=== PATIENT | female | born 1945 | race Caucasian/White ===

== ENCOUNTER → 2017-09-22 15:20 | Outpatient (CLI) | payer MEDICARE, SELFPAY ==
--- NOTE | 2017-09-22 | DI.MG.S_ITS ---
BILATERAL DIGITAL SCREENING MAMMOGRAM 3D/2D WITH CAD: 09/22/2017 CLINICAL: Routine screening. Comparison is made to exams dated: 09/01/2016 mammogram, 10/30/2015 mammogram, and 10/03/2014 mammogram - [facility]. The tissue of both breasts is heterogeneously dense. This may lower the sensitivity of mammography. Current study was also evaluated with a Computer Aided Detection (CAD) system. There is a large cluster of lymph nodes in the left breast posterior depth superior region seen on the mediolateral oblique view only. These are more conspicuous than on prior studies. No other significant masses, calcifications, or other findings are seen in either breast. IMPRESSION: INCOMPLETE: NEEDS ADDITIONAL IMAGING EVALUATION The cluster of lymph nodes in the left breast is indeterminate. An ultrasound is recommended. This exam was interpreted at Station ID: [id number]. NOTE: For mammograms, a report in lay terms will be sent to the patient. Approximately 15% of breast malignancies will not be visualized mammographically. In the management of a palpable breast mass, a negative mammogram must not discourage biopsy of a clinically suspicious lesion. Electronically Signed By: Snow Pulliam M.D. lk/:09/22/2017 17:19:50 letter sent: Additional Imaging Needed ACR BI-RADS Category 0: Incomplete 3340F
== END ==
PROVIDERS: Visit Provider Nurse Practitioner Family
DX: Z12.31 Encounter for screening mammogram for malignant neoplasm of breast (principal); R92.8 Other abnormal and inconclusive findings on diagnostic imaging of breast
CPT/HCPCS: 77063; 77067

== ENCOUNTER → 2017-10-04 09:48 | Outpatient (CLI) | payer MEDICARE, SELFPAY ==
--- NOTE | 2017-10-04 | DI.US.S_ITS ---
ULTRASOUND OF LEFT BREAST AND LEFT AXILLA: 10/04/2017 CLINICAL: Abnormal left mammogram. Comparison is made to exams dated: 09/22/2017 mammogram, 09/01/2016 mammogram, and 10/30/2015 mammogram - [facility]. Real-time ultrasound of the left breast and axilla was performed in the superior left breast. No abnormal enlarged left axillary lymph nodes identified. IMPRESSION: NEGATIVE There is no sonographic evidence of malignancy. There are no suspicious abnormalities seen in the left breast to correspond with the mildly enlarged axillary lymph nodes in the upper aspect. A 1 year screening mammogram is recommended. This exam was interpreted at Station ID: [id number]. Electronically Signed By: Blake bain/:10/04/2017 10:36:05 letter sent: Normal Exam Ultrasound BI-RADS: 1 Negative
== END ==
PROVIDERS: PCP Nurse Practitioner Family; Visit Provider Nurse Practitioner Family
DX: R92.8 Other abnormal and inconclusive findings on diagnostic imaging of breast (principal)
CPT/HCPCS: 76642

== ENCOUNTER → 2018-11-23 14:47 | Outpatient (CLI) | payer MEDICARE, SELFPAY ==
--- NOTE | 2018-11-23 14:56 | DI.MG.S_ITS ---
Diagnostic Imaging [address] [place] [id number] PHONE: [phone] Patient Name: HALIMA RON date: 1945 Sex: F Attending Physician: Sean Indications: Date: 11/23/2018 14:56 At the request of: NICK BUSH Procedure: MM screening mammo BI BILATERAL DIGITAL SCREENING MAMMOGRAM 3D/2D WITH CAD: 11/23/2018 CLINICAL: Routine screening. Comparison is made to exams dated: 09/22/2017 mammogram, 09/01/2016 mammogram, 10/30/2015 mammogram, 10/03/2014 mammogram, and 10/02/2013 mammogram - [facility]. The tissue of both breasts is heterogeneously dense. This may lower the sensitivity of mammography. Current study was also evaluated with a Computer Aided Detection (CAD) system. No significant masses, calcifications, or other findings are seen in either breast. There has been no significant interval change. IMPRESSION: NEGATIVE There is no mammographic evidence of malignancy. A 1 year screening mammogram is recommended. This exam was interpreted at Station ID: [id number]. NOTE: For mammograms, a report in lay terms will be sent to the patient. Approximately 15% of breast malignancies will not be visualized mammographically. In the management of a palpable breast mass, a negative mammogram must not discourage biopsy of a clinically suspicious lesion. Electronically Signed By: Delvin parham/dina:11/23/2018 19:00:08 letter sent: Normal Exam ACR BI-RADS Category 1: Negative 3341F
== END ==
PROVIDERS: PCP Nurse Practitioner Family; Visit Provider Nurse Practitioner Family
DX: Z12.31 Encounter for screening mammogram for malignant neoplasm of breast (principal)
CPT/HCPCS: 77063; 77067

== ENCOUNTER → 2020-03-13 09:31 | Outpatient (CLI) | payer MEDICARE, SELFPAY ==
--- NOTE | 2020-03-13 | DI.MG.S_ITS ---
BILATERAL DIGITAL DIAGNOSTIC MAMMOGRAM 3D/2D: 03/13/2020 CLINICAL: Left breast lump. Comparison is made to exams dated: 11/23/2018 mammogram, 09/22/2017 mammogram, and 09/01/2016 mammogram - [facility]. There are scattered fibroglandular elements in both breasts. There is a stable benign vascular calcification in both breasts. There is a stable benign 1.1 cm oval equal density asymmetry with a circumscribed margin in the left breast central to the nipple anterior depth. NO currency exchange specialist multliple prior exams. No other significant masses, calcifications, or other findings are seen in either breast. Specifically, no finding to explain the patient's pain. IMPRESSION: INCOMPLETE: NEEDS ADDITIONAL IMAGING EVALUATION There is no abnormality seen in the left breast to correspond with the pain at 1 o'clock in the posterior depth, however, ultrasound is recommended. This was performed immediately following this exam. Mammograms are otherwise stable. This exam was interpreted at Station ID: [id number]. NOTE: For mammograms, a report in lay terms will be sent to the patient. Approximately 15% of breast malignancies will not be visualized mammographically. In the management of a palpable breast mass, a negative mammogram must not discourage biopsy of a clinically suspicious lesion. Electronically Signed By: Rita galan/:03/13/2020 10:29:49 ACR BI-RADS Category 0: Incomplete 3340F
--- NOTE | 2020-03-13 | DI.US.S_ITS ---
LIMITED ULTRASOUND OF LEFT BREAST AND AXILLA: 03/13/2020 CLINICAL: Palpable left breast lump. Comparison is made to exams dated: 03/13/2020 mammogram, 11/23/2018 mammogram, 10/04/2017 ultrasound, 09/22/2017 mammogram, 09/01/2016 mammogram, and 10/30/2015 mammogram - [facility]. Real-time ultrasound of the left breast 1 o'clock, and axilla regions was performed. Blake scale images of the real-time examination were reviewed. No significant abnormalities were seen sonographically in the left breast or the left axilla. Specifically, no finding to correspond to the patient's palpable abnormality. IMPRESSION: NEGATIVE There is no sonographic correlate to the patient's palpable abnormality and no evidence of malignancy. Return to annual mammogram screening schedule is recommended. Findings and recommendations were conveyed to the patient at time of exam. This exam was interpreted at Station ID: [id number]. Electronically Signed By: Rita galan/:03/13/2020 11:16:12 letter sent: Normal Exam Ultrasound BI-RADS: 1 Negative
== END ==
PROVIDERS: PCP Nurse Practitioner Family; Referring Provider Nurse Practitioner Family; Visit Provider Nurse Practitioner Family
DX: R92.2 Inconclusive mammogram (principal); N63.21 Unspecified lump in the left breast, upper outer quadrant; M81.0 Age-related osteoporosis without current pathological fracture; Z78.0 Asymptomatic menopausal state; Z82.62 Family history of osteoporosis
CPT/HCPCS: 76642; 77066; 77080; G0279

== ENCOUNTER → 2020-07-29 15:34 | Outpatient (CLI) | payer MEDICARE, SELFPAY ==
--- NOTE | 2020-07-29 15:36 | DI.RAD.S_ITS ---
PROCEDURE: XR HIP W PEL IF DONE RODRIGUEZ MIN 4V INDICATIONS: HIP PAIN TECHNIQUE: AP pelvis with lateral view(s) of the bilateral hip(s). COMPARISON: None. FINDINGS: Bones: No fractures or dislocations. Pelvic ring appears intact. No suspicious bony lesions. There is severe right hip space narrowing with subchondral sclerosis and periarticular osteophytes. Moderate narrowing is noted on the left. Degenerative changes are present within the lower lumbar spine. Soft tissues: The visualized bowel gas pattern is normal. No suspicious soft tissue calcifications. IMPRESSION: Severe right hip arthritic change, progressive compared to prior exam. Dictated by: Mitzi Child M.D. on 07/29/2020 at 16:59 Approved by: Mitzi Child M.D. on 07/29/2020 at 17:01
== END ==
PROVIDERS: PCP Nurse Practitioner Family; Referring Provider Physical Medicine & Rehabilitation; Visit Provider Physical Medicine & Rehabilitation
DX: M25.551 Pain in right hip (principal); M25.552 Pain in left hip
CPT/HCPCS: 73522

== ENCOUNTER → 2022-02-26 12:17 | Outpatient (CLI) | payer MEDICARE, SELFPAY ==
--- NOTE | 2022-02-26 | DI.MG.S_ITS ---
BILATERAL DIGITAL SCREENING MAMMOGRAM 3D/2D WITH CAD: 02/26/2022 CLINICAL: Routine screening. Comparison is made to exams dated: 03/13/2020 mammogram, 11/23/2018 mammogram, and 09/22/2017 mammogram - [facility]. There are scattered areas of fibroglandular density in both breasts (category b / 25%-50% glandular tissue). Current study was also evaluated with a Computer Aided Detection (CAD) system. There are stable benign vascular calcifications in both breasts. No significant masses, calcifications, or other findings are seen in either breast. There has been no significant interval change. IMPRESSION: BENIGN There is no mammographic evidence of malignancy. A 1 year screening mammogram is recommended. Based on the Tyrer Cuzick model (a risk assessment model) the patient's lifetime risk is 3.6% and her 10 year risk is 0.0%. According to the ACR, ACS, and NCCN guidelines, an annual breast MRI exam along with mammogram is recommended if the patient's lifetime risk is 20% or greater. This exam was interpreted at Station ID: [id number]. NOTE: For mammograms, a report in lay terms will be sent to the patient. Approximately 15% of breast malignancies will not be visualized mammographically. In the management of a palpable breast mass, a negative mammogram must not discourage biopsy of a clinically suspicious lesion. Electronically Signed By: Dirk olson/dina:02/26/2022 16:33:22 letter sent: Normal Exam ACR BI-RADS Category 2: Benign Finding(s) 3342F
== END ==
PROVIDERS: PCP Family Medicine; Referring Provider Family Medicine; Visit Provider Family Medicine
DX: M81.8 Other osteoporosis without current pathological fracture (principal); Z12.31 Encounter for screening mammogram for malignant neoplasm of breast; Z79.83 Long term (current) use of bisphosphonates
CPT/HCPCS: 77063; 77067; 77080

== ENCOUNTER 2022-03-19 06:34 | Day surgery (SDC) | payer MEDICARE, SELFPAY ==
[2022-03-11 09:53] VITALS: BMI 18.3
[2022-03-19] VITALS (17 sets, daily range): BP systolic 82–172; BP diastolic 46–83; PULSE 57–83; RESP 12–20; TEMP 35.8–37; O2SAT 92–100; BMI 18.3
--- NOTE | 2022-03-19 06:00 | DI.RAD.S_ITS ---
PROCEDURE: XR HIP W PEL IF DONE RT 2V INDICATIONS: TRACEY TECHNIQUE: 4 intraoperative fluoroscopic images of the right hip acquired. COMPARISON: [facility], CR, XR HIP W PEL IF DONE RT 2V, 03/19/2022, 10:52. FINDINGS: Intraoperative fluoroscopic images shows right total hip arthroplasty in progress. Right hip alignment is anatomic. IMPRESSION: Fluoro guidance was provided intraoperatively for right total hip arthroplasty. Dictated by: Joon Burgess M.D. on 03/19/2022 at 16:39 Approved by: Joon Burgess M.D. on 03/19/2022 at 16:40
[2022-03-19] MEDS: VANCOMYCIN 1,000 MG/200 ML PIGGYBACK 200 MG IV (07:25)
[2022-03-19] MEDS: ACETAMINOPHEN 325 MG TABLET 975 MG PO (07:25)
[2022-03-19] MEDS: CELECOXIB 200 MG CAPSULE PO (07:26)
[2022-03-19] MEDS: LACTATED RINGERS 1,000 ML 84 ML IV (07:28)
--- NOTE | 2022-03-19 07:40 | PM.PREOP ---
Pre-operative Note COVID-19 COVID-19 status: Negative Interval Note History & Physical reviewed/Exam performed by Physician: Yes Changes to H&P: No
--- NOTE | 2022-03-19 07:41 | PM.PREOP ---
Pre-operative Note COVID-19 COVID-19 status: Negative Interval Note History & Physical reviewed/Exam performed by Physician: Yes Changes to H&P: No
--- NOTE | 2022-03-19 07:47 | P.OP_ITS ---
Operative Date/Time/Diagnoses Date of procedure: 03/19/22 Time of procedure: 08:00 Pre-op diagnosis: right hip OA Post-op diagnosis: same Procedure & Clinicians Procedure: right total hip arthroplasty anterior approach Same procedure as scheduled: Yes Indications: The patient has had progressively worsening right hip pain with radiographic c hanges consistent with arthritis. Non-operative management has failed and the patient has requested total hip replacement. The risks, benefits and alternatives to surgery were discussed with the patient prior to proceeding. Risks discussed included, but were not limited to, failure to relieve pain, leg length discrepancy, dislocation, stiffness, infection, nerve damage, deep venous thrombosis, pulmonary embolism, stroke, coma, heart attack, permanent paralysis and , as well as the potential need for eventual revision of the prosthetic. Surgeon: Valentina Del Valle Principal Cyber Engineer: Kesha Nino Anesthesia Type: General and Spinal Operative Notes Findings: Severe right hip osteoarthritis, soft femur, adequate stability Closure Type: primary Specimen(s): none sent Prosthetic devices, grafts, tissues, transplants, or devices: Del Valle and nephew anthology size 6 standard offset, 50 mm R3 cup, neutral poly liner, 32 x -3 Oxinium femoral head,one 6.5 mm screw Estimated Blood Loss (mL): 200 Blood products transfused: none Procedure in detail: The patient was brought to the operating room. Patient was carefully positioned in the supine position. Time-out was performed and antibiotics were given. Anesthesia was induced. She was positioned in the on the table in order to allow hyperextension of the hip. The right lower extremity was prepped and draped in a standard sterile fashion. An anterior right hip incision was made 1 fingerbreadth lateral to the anterior superior iliac spine and extended distally towards the greater trochanter. Dissection was carried out through skin and subcutaneous tissues. Superficial hemostasis was achieved. The fascia over the tensor fascia augie was defined and incised with a knife. Two Allis clamps were used to grasp the fascia. Tensor fascia augie was retracted laterally. A gelpi retractor was placed. Dissection was carried out down along the neck. The circumflex vessels were carefully identified and cauterized with the Aqua Mantis. There was good visualization of the femoral neck. A Cobra was placed superior to the neck and the gluteus fibers were carefully stripped from that superior aspect of the capsule. A 2nd retractor was placed along the inferior aspect of the neck. The rectus insertion along the capsule was partially released. A 3rd retractor that was then gently placed over the rim of the acetabulum under the rectus. Capsule was carefully incised and released from the intertrochanteric line circumferentially superior to the mid sagittal line and inferiorly to the mid sagittal line until the lesser trochanter was palpable. A tag stitch was placed both in the superior and inferior limb of the capsular insertion. Along the acetabulum capsule was also released up to the mid sagittal 12:00 position. A portion of the labrum was resected. A saw was used to perform an osteotomy at the level of the intertrochanteric line and the junction of the superior femoral neck leaving approximately 1 finger breath of residual inferior neck above the lesser trochanter. A 2nd cut was made along the femoral neck at the base of the head and a napkin ring of neck was removed. Corkscrew was placed in the femoral head and the head was removed without difficulty. Retractors were then repositioned around the acetabulum. Residual labrum was resected and additional osteophytes were removed. A reamer that was 4 mm below the templated size was placed by hand in the acetabulum and it was reamed to centralize the acetabulum. It was then reamed up to 2 under the templated size and fluoroscopy was brought in to confirm the position of the reaming and depth of reaming. I reamed 1 under the anticipated size. A trial cup was placed and noted that it was appropriately sized and fluoroscopy confirmed position and depth. The component was open and inserted without difficulty fluoroscopic imaging was used to confirm that the cup had been adequately seated and was well positioned. It was further stabilized with a single screw. Neutral poly liner was placed. The cup was tested and noted to be stable. Attention was then directed to the femur. The femur was gently hyperextended additional capsular release was performed as needed in order to allow adequate visualization of the proximal femur with elevation of the femur. Patient was placed in a hyperextended slightly adducted position with maximum external rotation. Box osteotome was used to check for any residual neck as well as scler otic bone along the trochanter. [place] pepper was placed in the femur. Additional broaching was performed. Canal finder was used to determine the alignment of the canal and position. Size 1 broach was placed. The canal was then appropriately broached up to the templated size as long as there was adequate stability of the broach and serial advancement of the broach without excessive impingement. Sp ecific attention was directed at avoiding varus attempting to direct the distal aspect of the broach more anteriorly and avoiding excessive anteversion. Trial reduction showed acceptable range of motion, good stability, no posterior impingement, muslim of leg length and appropriate lateral shuck. I also hyperflexed the hip and checked that there was no impingement anteriorly and there was good stability with flexion, adduction and internal rotation. Marcaine and Exparel were injected. The stem was placed without difficulty. Repeat trial reduction and x-ray showed acceptable overall position, length, and no evidence of the femoral fracture. Final head was placed. Wound was meticulously irrigated with normal saline. The hip was reduced and additional Exparel and Marcaine were injected. The capsule was closed with interrupted nonabsorbable sutures. The fascia of the tensor was closed with interrupted and running Vicryl. No drain was placed. Any tensor fascia augie muscle that appeared to be contused or injured which was a minimal amount was carefully resected. Capsule around the tensor was injected with Exparel and Marcaine. The skin was closed with barbed stitches for the s ubcutaneous tissue and skin. We also used surgical glue. The wound was dressed sterilely. Brief Betadine soak was also used and was meticulously irrigated with normal saline. Patient was transferred to recovery room in satisfactory condition. Complications: none Post-operative Condition: stable Disposition: Acute Care Plan for aftercare: The patient will be maintained on a standard total hip replacement protocol with weight bearing as tolerated and anterior hip precautions. The patient will receive Aspirin and sequential compression devices for DVT prophylaxis. The patient will be discharged home when safe for the home environment.
[2022-03-19] MEDS: CEFAZOLIN 2 GM/100 ML PREMIX 100 ML IV ×3 (08:30→23:22)
[2022-03-19] MEDS: TRANEXAMIC ACID 1,000 MG VIAL 2000 MG INJ ×2 (08:40→10:24)
[2022-03-19] MEDS: BUPIVACAINE LIPOSOME 266 MG/20 ML VIAL INJ (09:12)
[2022-03-19] MEDS: BUPIVACAINE 0.5% W/ EPI (PF) 30 ML VIAL INJ (09:13)
--- NOTE | 2022-03-19 09:16 | SUR.OPER ---
Supine on padded [place] table with bilateral legs secured in padded positioning boots and suspended in positioning spars, operative leg in traction per surgeon. Head on one pillow. Arm on non-operative side secured on padded armboard <90 degrees abduction. Arm on operative side padded and resting across chest then secured with tape over sheet. Padded perineal post in place per surgeon.
--- NOTE | 2022-03-19 11:00 | DI.RAD.S_ITS ---
PROCEDURE: XR HIP W PEL IF DONE RT 2V INDICATIONS: RIGHT ANTERIOR HIP TECHNIQUE: AP pelvis and lateral view of the right hip acquired. COMPARISON: [facility], CR, XR HIP W PEL IF DONE RT 2V, 03/19/2022, 11:02. [facility], CR, XR HIP W PEL IF DONE RODRIGUEZ 3TO4V, 07/29/2020, 15:36. [facility], CR, XR PELVIS WITH LATERAL HIP RIGHT, 09/18/2021, 13:42. FINDINGS: Bones: Patient is status post right hip arthroplasty, with hardware components in expected positions. The hip joint appears congruent. The visualized bony structures appear intact. Soft tissues: Overlying postoperative changes are noted. No suspicious soft tissue densities. IMPRESSION: Normal postoperative examination. Dictated by: Joseph Weinberg M.D. on 03/19/2022 at 10:28 Approved by: Joseph Weinberg M.D. on 03/19/2022 at 10:28
[2022-03-19] MEDS: LACTATED RINGERS 1,000 ML 100 ML IV (11:55)
--- NOTE | 2022-03-19 12:15 | SUR.PHASEI ---
transferred pt to floor and pt talking and moving all extremities. Pt denies any pain . No complaints voiced. No distress noted. Pt's in room when pt arrived.
[2022-03-19] MEDS: LACTATED RINGERS 1,000 ML 125 ML IV ×2 (13:00→21:27)
--- NOTE | 2022-03-19 15:15 | PT.IIE ---
Current Diagnoses Unilateral primary osteoarthritis, right hip (03/19/22) Surgery Performed Operation Date: 03/19/22 07:45 Actual Procedures p Total Hip Arthroplasty/Anterior Approach(Right) - Valentina Del Valle MD Surgical History (Last Updated 01/12/22 @ 09:12 by Jenn Lucero, RN) History of bilateral tubal ligation History of ear surgery History of tonsillectomy Hx of bilateral cataract extraction (2018) Status post cholecystectomy Medical History (Last Updated 03/11/22 @ 09:56 by Jenn Lucero RN) COVID-19 virus infection (02/09/22) HTN (hypertension) Osteoarthritis Physical Therapy Inpatient Evaluation/Re-Eval M1 PT/OT-IP Prior Functional Status Start: 03/19/22 16:31 Freq: NEEDED Status: Active Protocol: Document 03/19/22 15:15 AB (Rec: 03/19/22 16:49 AB [id number]) Medical Review Prior Functional Status Medical History Reviewed Yes Communication able to make needs known Mobility and Gait pt staed that she is independent with all mobilities and ambulation without AD Social History Household Members spouse Living Arrangements House Number of Floors (Floors) 3 or More Floors Number of Stairs To Enter/Railing? pt will stay on first level of the house: has one step to enter the house but stated that she has gravel slope and will have EMT carry her into the house and that [place] EMT already agreed to to this for her Home Environment Standard Height Toilet,Tub/ Shower Home Equipment Front Wheel Walker,Raised Toilet Seat w/Armrests,Tub Transfer Bench,Hand Held Shower,Hospital Bed,Bed Rails M2 PT-IP Current Condition Start: 03/19/22 16:31 Freq: NEEDED Status: Active Protocol: Document 03/19/22 15:15 AB (Rec: 03/19/22 16:49 AB [email or web address]) Physical Therapy Current Condition Current Condition Evaluation Date 03/19/22 Treatment Diagnosis s/p R TRACEY anterior approach; difficulty in walking Onset Date 03/19/22 M3 PT-IP Subjective Start: 03/19/22 16:31 Freq: NEEDED Status: Active Protocol: Document 03/19/22 15:15 AB (Rec: 03/19/22 16:49 AB [id number]) Subjective Physical Therapy Visit Type Type Initial Evaluation Visit Start Time 15:15 Visit Stop Time 16:27 Total Visit Minutes 72 Number of ACQUISITIONS ASSISTANT Visits 0 Therapy Pain Assessment Pain When Pain Assessed At Rest Pain Present Pain Present Pain Reported Location Right hip Intensity 2 Scale Used Numeric (0 - 10) Pain Management Techniques Apply Cold,Distraction, Modification of Treatment,Re- positioning,Timing of Activity with Medications M4 PT-IP Mobility and Gait Start: 03/19/22 16:31 Freq: NEEDED Status: Active Protocol: Document 03/19/22 15:15 AB (Rec: 03/19/22 16:49 AB [id number]) PT-Bed Mobility Assessment Supine to Sit Supine to Sit Standby Assistance Sit to Supine Sit to Supine Standby Assistance PT-Transfer Assessment Sit to and From Stand Sit to and from Stand Contact Guard Assistance,1 Person Assistance,Use of Upper Extremities Equipment Transfer Assistive Device Gait Belt,Front Wheeled Walker Orthotic/Prosthetic Devices or Brace: No Comments Mobility Comments pt c/o nausea but agreed to do PT. per nurse, pt given anti nausea med already. spouse arrived. educated pt and spouse regarding hip precautions. post-op folder provided. pt keeps stating and questioning anterior hip precautions despite education provided. stated that somebody told her not to bend her knees and reiterated to the pt regarding her hip precautions and how different surgeries have different precautions. completed supine to sit SBA. pt completed sit to stand CGA and ambulated 10 ft using FWW CGA. c/o nausea (+) emesis. chair positioned behind pt and instructed to sit but pt refused. pt insisted that she is going to walk backwards. completed bacward ambulation using FWW CGA and cues for anterior hip precaution. completed side stepping towards HOB CGA using FWW. completed sit to supine SBA. positioned pt in bed. call light and table placed within reach. pt continues to have questions regarding hip precautions and again re-educated. pt plans to have HHPT. spouse stated that he will be in the hospital 8 am to ~ 1045 am tomorrow. Gait Assessment Gait Gait Assistance Required: Contact Guard Assist Distance (Feet) 20 Able to Maintain Weight Bearing Status Yes During Gait Assistive Devices Assistive Device Gait Belt,Front Wheeled Walker Orthotic/Prosthetic Devices or Brace: No Gait Deviations General Gait Pattern Decreased Feet Clearance Factors Limiting Gait Function Factors Limiting Gait Function Decreased Activity Tolerance, Decreased Strength,Difficulty Following Directions,Limited Range of Motion,Pain,Poor Balance,Poor Safety Awareness PT-Balance Assessment Sitting Balance and Reactions Static Sitting Balance Ability Normal Dynamic Sitting Balance Ability Good Standing Balance and Reactions Static Standing Balance Ability Fair Dynamic Standing Balance Ability Fair Device Used FWW M5 PT-IP Objective Assessments Start: 03/19/22 16:31 Freq: NEEDED Status: Active Protocol: Document 03/19/22 15:15 AB (Rec: 03/19/22 16:49 AB [id number]) Orientation Orientation/Cognition Level of Alertness Alert Orientation Name,Place Language Function Ability No Deficits Noted Safety Awareness Decreased Safety Awareness Memory Description Short Term Impaired Gross Range of Motion Lower Extremity ROM Assessment Within Functional Limits Strength Lower Extremity Strength Hip 4-/5 Knee 4-/5 Sensation Assessment Sensation Gross Sensation WNL Muscle Tone Muscle Tone WNL Yes M6 PT-IP Treatment Start: 03/19/22 16:31 Freq: NEEDED Status: Active Protocol: Document 03/19/22 15:15 AB (Rec: 03/19/22 16:49 AB [id number]) Physical Therapy Treatment Education Education Provided Precautions,Weight Bearing Status,Post-Op Packet,Safety M7 PT-IP Assessment and Plan Start: 03/19/22 16:31 Freq: NEEDED Status: Active Protocol: Document 03/19/22 15:15 AB (Rec: 03/19/22 16:49 AB [id number]) PT Summary Assessment and Plan Potential Rehabilitation Potential Fair Status of Condition at Evaluation Evolving Summary Impairments Pain,ROM,Strength,Balance, Coordination,Sensation,Tone, Cognition,Bed Mobility, Transfers,Gait,Activity Tolerance Assessment Summary pt requiring CGA with ambulation using fWW but cues for anterior hip precautions. Pt's spouse will be available 800 to 1045 am tomorrow for caregiver training. will continuet o assess progress. Goals Bed Mobility Goal Independent Transfer Goal Independent,Front Wheeled Walker Gait Goal Independent,Front Wheel Walker Gait Distance 200 Days to Meet Goals 3 Frequency of Treatment Frequency Of Treatment Twice a Day Treatment Plan Physical Therapy Treatment Plan Bed Mobility Training,Transfer Training,Gait Training, Therapeutic Exercise,Balance Retraining,Post Op Education, Discharge Planning,Hot or Cold Pack,Neuromuscular Re-ed, Coordination Retraining,Manual Therapy Precautions Anterior Hip Precautions No Hip Extension,No Hip External Rotation Weight Bearing Status Weight Bearing Status Weight Bear as Tolerated Allowed Weight Bearing Amount (enter % RLE WBAT or #) (%) Recommendations To Nursing Amount of Assist Needed 1 Person Assist Discharge Recommendations PT Discharge Recommendations Home with Assistance,Home Health Transportation Needs at Discharge Private Vehicle,Wheelchair/ Cabulance
[2022-03-19] MEDS: ONDANSETRON 4 MG/2 ML INJ IV ×2 (15:35→18:45)
--- NOTE | 2022-03-19 15:46 | PC.NURSE ---
Pt arrives from PACU this afternoon at approximately 1210. VSS, afebrile on RA. She is slightly lethargic but able to awaken and answer questions. She denies wanting any jello, broth or crackers and naps on and off. RN prepares to bladder scan at 1445 as her last void was about 6 a.m. She c/o nausea and is given zofran, BP evaluated and stable at 135/66 HR 66. She is offered a bed ashraf but wanted to get up out of bed. Reviewed hip precautions and sat at the edge of the bed, she denied dizziness and was able to use FWW to BR for a large void. She is assisted back to bed and when lying down reports pain is well controlled at 2/10. alevyn dressing C/D/I with slight surrounding bruising. She denies numbness to BLE's, no edema noted, +CMS. LR running at 125 ml/hr, cefazolin administere,call light in reach. PT at bedside this afternoon.Frequent monitoring.
[2022-03-19] MEDS: KETOROLAC 30 MG/ML VIAL 15 MG IV (21:02)
[2022-03-19] MEDS: LOSARTAN 25 MG TABLET PO (21:03)
[2022-03-19] MEDS: DOCUSATE 100 MG CAPSULE PO (21:03)
[2022-03-19] MEDS: ASPIRIN EC 81 MG TABLET PO (21:03)
[2022-03-19] MEDS: hydrOXYzine pamoate 25 MG CAPSULE PO (21:57)
[2022-03-19] MEDS: ACETAMINOPHEN 325 MG TABLET 650 MG PO (23:21)
[2022-03-19] MEDS: IBUPROFEN 400 MG TABLET PO (23:21)
--- NOTE | 2022-03-20 04:20 | PC.NURSE ---
Pt is AxOx4, needs 1-2 person assistance to the bathroom with FWW. VSS, pt has been so anxious and sad all evening or when she is awake due to her family member passing recently. Pt was given Vistaril for anxiety and also the [facility] was called because she said she needed to talk to someone. Pt has been worried about every little things and cries. Pt slept ok and IV went bad around 2 a.m so IV fluid stopped and removed IV. Pt has been drinking well and voided twice already. No other changes. Continue monitor.
[2022-03-20] MEDS: ACETAMINOPHEN 325 MG TABLET 650 MG PO ×2 (05:17→12:48)
[2022-03-20] MEDS: IBUPROFEN 400 MG TABLET PO ×2 (05:17→12:50)
[2022-03-20 05:20] LABS: Hematocrit 25.2 % (36-46); Hemoglobin 8.7 g/dL (12.0-16.0)
[2022-03-20 05:51] VITALS: BP 108/56; PULSE 82; RESP 19; TEMP 36.2; O2SAT 99
--- NOTE | 2022-03-20 06:49 | P.DS_ITS ---
History of Present Illness History of Present Illness Date Patient Seen: 03/20/22 Time Patient Seen: 06:49 Chief complaint: OPB Narrative: Operative Date/Time/Diagnoses Date of procedure: 03/19/22 Time of procedure: 08:00 Pre-op diagnosis: right hip OA Post-op diagnosis: same Procedure & Clinicians Procedure: right total hip arthroplasty anterior approach Same procedure as scheduled: Yes Indications: The patient has had progressively worsening right hip pain with radiographic changes consistent with arthritis. Non-operative management has failed and the patient has requested total hip replacement. The risks, benefits and alternatives to surgery were discussed with the patient prior to proceeding. Risks discussed included, but were not limited to, failure to relieve pain, leg length discrepancy, dislocation, stiffness, infection, nerve damage, deep venous thrombosis, pulmonary embolism, stroke, coma, heart attack, permanent paralysis and , as well as the potential need for eventual revision of the prostheti c. Surgeon: Valentina Del Valle Windows Server Administrator: Kesah Nino Anesthesia Type: General and Spinal Operative Notes Findings: Severe right hip osteoarthritis, soft femur, adequate stability Closure Type: primary Specimen(s): none sent Prosthetic devices, grafts, tissues, transplants, or devices: Del Valle and nephew anthology size 6 standard offset, 50 mm R3 cup, neutral poly liner, 32 x -3 Oxinium femoral head,one 6.5 mm screw Estimated Blood Loss (mL): 200 Blood products transfused: none Discharge Providers Provider Discharge Date: 03/20/22 Primary care physician: Lou Flores MD Consults: 03/19/22 06:00 Consult to Anesthesiology Routine Comment: Consulting Provider: Anesthesiologist Reason for consultation: Regional block for post operative pain control 03/19/22 11:59 Consult to Discharge Planning Routine Comment: Consult to Physical Therapy Evaluate & Treat Comment: Physician Instructions: post op TRACEY protocol Discharge provider: Marbella Vaughan PA-C Summary Hospital Course Discharge Diagnosis: Right hip osteoarthritis, s/p right total hip arthroplasty Hospital Course: Ms Jimenez's hospital course was unremarkable. On the morning of POD# 1, she was feeling well but was very anxious about her BP. She said she had been given losartan the evening before despite her DBP being only 63, and her DBP had been in the 50s since that time. She denied dizziness or visual changes. She was evaluated by PT and felt to be safe for homegoing with assistance; she has her and daughter for help at home. She was voiding without difficulty and denied N/V. Her pain was well-controlled with oral medication. Exam Vital Signs (past 8 hours): - 03/19/22 23:30 03/20/22 05:51 Temperature 98.5 F 97.2 F L Pulse Rate 83 82 Respiratory Rate 20 19 Blood Pressure 114/55 L 108/56 L Pulse Oximetry 100 99 Oxygen Flow Rate 0 0 Oxygen Delivery Method Room Air Oxygen Flow Rate 0 Narrative Exam Narrative: 4/5 strength in hip flexors; 5/5 quadriceps, hamstrings, DF, PF, EHL on right. Sensation to light touch intact throughout RLE. Calves soft, compressible, nontender and without palpable cords or masses. Dressing CDI. Objective Labs Result Diagrams: 03/20/22 04:58 Labs: Laboratory Results - last 24 hr 03/20/22 04:58 Hgb 8.7 L Hct 25.2 L PFSH Medical History (Updated 03/11/22 @ 09:56 by Jenn Lucero RN) COVID-19 virus infection (02/09/22) HTN (hypertension) Osteoarthritis Surgical History (Updated 01/12/22 @ 09:12 by Jenn Lucero RN) History of bilateral tubal ligation History of ear surgery History of tonsillectomy Hx of bilateral cataract extraction (2017) Status post cholecystectomy Family History (Updated 08/26/16 @ 00:00 by Conversion Provider) Sister Age: 81 Cancer Sister Age: 72 Cancer Social History household members: spouse Smoking Status: Never smoker alcohol intake: current Discharge Assessment & Plan Assessment and Plan Assessment: Right hip osteoarthritis, s/p right total hip arthroplasty Acute anemia d/t expected surgical blood loss Plan of Treatment: Discharge home when DBP 60 or greater and SPB 100 or greater and VSS otherwise stable. Pt has postop meds at home. ASA 81 mg BID for VTE prophylaxis, outpt PT, f/u in 2 weeks. Discharge Plan Discharge Plan Patient Disposition: Home Discharge orders & Medications Discharge Orders: Discharge (Order); Ordered 03/20/22 Ordered By: Marbella Vaughan Prescriptions: Continued calcium carbonate-vitamin D3 [Oyster Shell Calcium-Vit D3] 1,250 MG/200 IU tablet 1 tab PO DAILY Qty: 0 estradiol [Vagifem] 10 MCG tablet 10 mcg VG QWEEK Qty: 12 3RF losartan 25 mg Tablet 25 mg PO BEDTIME celecoxib 100 mg Capsule 100 mg PO BID alendronate 70 mg Tablet 70 mg PO QWEEK Label Comments: Takes every Wednesday Follow up/Referrals: Lou Flores MD [Primary Care Provider] - Valentina Del Valle MD [Physician] - As previously scheduled (Follow up with Dr Del Valle on 04/01/2022 @ 2:30 pm at 60mo office [facility].) Diet/Activity/Treatments Diet: Diet as Tolerated Activity: Weight bearing as tolerated on right leg. Anterior hip precautions. Cold/Heat Therapy: Ice to hip as needed for pain. Skin/Wound/Dressing Care Report to your healthcare provider any signs of infection, such as:: chills, fever, night sweats, unusual drainage and unusual redness Dressing: May shower. Leave dressing in place until follow up in office. No bathing or otherwise soaking incision. Call the office if the dressing becomes saturated inside. Visit Report/Discharge Packet Instructions: DI for Hip Replacement Stand Alone Forms: Surgery Discharge Discharge Data Primary Care Provider: Lou Flores Attending Provider: Valentina Del Valle
--- NOTE | 2022-03-20 07:07 | PC.NURSE ---
Pt said she feels like she is sick to her stomach, she wants to know if she can take anything before she leaves, and feels like she has to have a bowel movement but cant. Nurse notified.
[2022-03-20] MEDS: ONDANSETRON 4 MG ODT PO ×2 (08:06→13:43)
[2022-03-20] MEDS: ASPIRIN EC 81 MG TABLET PO (08:08)
[2022-03-20] MEDS: DOCUSATE 100 MG CAPSULE PO (08:08)
[2022-03-20] MEDS: CALCIUM CARB/VIT D3 500/200 TABLET 1 EACH PO (08:08)
[2022-03-20] MEDS: CELECOXIB 100 MG CAPSULE PO (09:07)
[2022-03-20 09:09] VITALS: BP 133/62; PULSE 90; RESP 18; TEMP 36.6; O2SAT 100
--- NOTE | 2022-03-20 10:30 | PT.IPTN ---
Current Diagnoses Unilateral primary osteoarthritis, right hip (03/19/22) Surgery Performed Operation Date: 03/19/22 07:45 Actual Procedures p Total Hip Arthroplasty/Anterior Approach(Right) - Valentina Del Valle MD Physical Therapy Treatment Note M2 PT-IP Current Condition Start: 03/19/22 16:31 Freq: NEEDED Status: Active Protocol: Document 03/20/22 10:18 AMB (Rec: 03/20/22 10:32 AMB [id number]) Physical Therapy Current Condition Current Condition Evaluation Date 03/19/22 Treatment Diagnosis s/p R TRACEY anterior approach; difficulty in walking Onset Date 03/19/22 M3 PT-IP Subjective Start: 03/19/22 16:31 Freq: NEEDED Status: Active Protocol: Document 03/20/22 10:18 AMB (Rec: 03/20/22 10:32 AMB [id number]) Subjective Physical Therapy Visit Type Type Treatment Note Visit Start Time 09:45 Visit Stop Time 10:25 Total Visit Minutes 40 Therapy Pain Assessment Pain When Pain Assessed At Rest Pain Present Pain Present Pain Reported Location Right hip Intensity 2 Scale Used Numeric (0 - 10) Pain Management Techniques Apply Cold,Distraction, Modification of Treatment,Re- positioning,Timing of Activity with Medications M4 PT-IP Mobility and Gait Start: 03/19/22 16:31 Freq: NEEDED Status: Active Protocol: Document 03/20/22 10:18 AMB (Rec: 03/20/22 10:32 AMB [id number]) PT-Bed Mobility Assessment Supine to Sit Supine to Sit Standby Assistance Sit to Supine Sit to Supine Standby Assistance PT-Transfer Assessment Sit to and From Stand Sit to and from Stand Contact Guard Assistance,1 Person Assistance,Use of Upper Extremities Equipment Transfer Assistive Device Gait Belt,Front Wheeled Walker Orthotic/Prosthetic Devices or Brace: No Gait Assessment Gait Gait Assistance Required: Contact Guard Assist Distance (Feet) 150 Assistive Devices Assistive Device Gait Belt,Front Wheeled Walker Orthotic/Prosthetic Devices or Brace: No Gait Deviations General Gait Pattern Decreased Feet Clearance Factors Limiting Gait Function Factors Limiting Gait Function Decreased Activity Tolerance, Decreased Strength,Difficulty Following Directions,Limited Range of Motion,Pain,Poor Balance,Poor Safety Awareness Comments Gait Comments Jenn had more questions today in regard to hip precuations. Was with nursing going to bathroom when PT entered, PT then assisted pt to bathroom from seated on bed. Discussed hip precautions at length with both pt and . Pt then ambulated to sink wiht SBA and stood to wash hands, brush hair/teeth wiht SBA. Pt ambulated with FWW 150' in hallway. Did not describe an increase in pain or nausea, did feel tired. Returned to room and positioned in bed. Again discussed hip precautions with bed mobility. M5 PT-IP Objective Assessments Start: 03/19/22 16:31 Freq: NEEDED Status: Active Protocol: Document 03/19/22 15:15 AB (Rec: 03/19/22 16:49 AB [id number]) Orientation Orientation/Cognition Level of Alertness Alert Orientation Name,Place Language Function Ability No Deficits Noted Safety Awareness Decreased Safety Awareness Memory Description Short Term Impaired Gross Range of Motion Lower Extremity ROM Assessment Within Functional Limits Strength Lower Extremity Strength Hip 4-/5 Knee 4-/5 Sensation Assessment Sensation Gross Sensation WNL Muscle Tone Muscle Tone WNL Yes M6 PT-IP Treatment Start: 03/19/22 16:31 Freq: NEEDED Status: Active Protocol: Document 03/20/22 10:18 AMB (Rec: 03/20/22 10:32 AMB [id number]) Physical Therapy Treatment Education Education Provided Precautions M7 PT-IP Assessment and Plan Start: 03/19/22 16:31 Freq: NEEDED Status: Active Protocol: Document 03/20/22 10:18 AMB (Rec: 03/20/22 10:32 AMB [id number]) PT Summary Assessment and Plan Summary Impairments Pain,ROM,Strength,Balance, Coordination,Sensation,Tone, Cognition,Bed Mobility, Transfers,Gait,Activity Tolerance Assessment Summary Pt required SBA with gait and bed mobility. Extensive pt education re precautions and mobility. Reviewed exercises: glute and quad isometrics, heel slides, ankle pumps. Pt to avoid SLR repetetively for exercise. Pt to d/c home with spouse and homehealth when medically stable. Did leave message with DCP in regards to patient's concern regarding home health referral. She recieved a voicemail that it was incomplete and needed to be resent. Goals Bed Mobility Goal Independent Transfer Goal Independent,Front Wheeled Walker Gait Goal Independent,Front Wheel Walker Gait Distance 200 Days to Meet Goals 3 Frequency of Treatment Frequency Of Treatment Twice a Day Treatment Plan Physical Therapy Treatment Plan Bed Mobility Training,Transfer Training,Gait Training, Therapeutic Exercise,Balance Retraining,Post Op Education, Discharge Planning,Hot or Cold Pack,Neuromuscular Re-ed, Coordination Retraining,Manual Therapy Precautions Anterior Hip Precautions No Hip Extension,No Hip External Rotation Weight Bearing Status Weight Bearing Status Weight Bear as Tolerated Allowed Weight Bearing Amount (enter % RLE WBAT or #) (%) Recommendations To Nursing Amount of Assist Needed 1 Person Assist Discharge Recommendations PT Discharge Recommendations Home with Assistance,Home Health Transportation Needs at Discharge Private Vehicle,Wheelchair/ Cabulance
--- NOTE | 2022-03-20 11:14 | CM.DANOTE ---
Patient is a 76 yo female who was admitted on 03/19/22 for RTHA. Pt has MCR and [employer] for insurance and her PCP is Lou Flores. EMR was reviewed. Per Ortho, pt tolerated procedure well and stable for d/c home today after final CG training with PT. Per PT, recommending home with assist and HH. SW met bedside with pt, spouse, and adult Dtr and explained role and they confirm that pt lives on [address] with spouse and Dtr is local and supportive and DPOA is 1) spouse 2) Dtr. Pt is active and independent at baseline and does not typically use DME and plans to stay on the first floor of their house at d and spouse can assist and pt has been attending outpt PT and they also are recommending HH PT at [facility]. Pt is agreeable with HH at [facility] and aware that [facility] only agency that services [place]. SW called Saurabh at [facility] and he is aware of pt but they have not received the F2F from Ortho MD yet and also preference for insurance purposes is for the MD or PA to note in their discharge the need for HH. F2F completed and scanned and HH orders placed and SW attempted multiple times to contact the PA to amend her d/c summ to include the recommendation of HH but no answer at [facility] yet and SW will continue to attempt. [facility] brochure provided to pt and family and [employer] working on the priority boarding pass [place] [place] family P[place]. Plan: Patient to d/c home via family POV today for the [address] to [place] and [facility] to follow after discharge for HH RN/PT/OT. KYLE Hazel Discharge Planning/Care Management CM Discharge Assessment Start: 03/20/22 11:11 Freq: Status: Active Protocol: Document 03/20/22 11:11 BF (Rec: 03/20/22 11:14 BF [id number]) Discharge Planning Assessment Assigned Rn Teacher KYLE Vann DPOA/Assigned Designee Name Spouse Volodymyr Contact Information [phone] Advance Directives? Yes Advance Directives on File No History Provided By Patient,Family Member,Medical Record Has Patient been admitted in last 30 No days? Prior Living Arrangements House Household Members spouse Type of transporation used prior to Drives own vehicle admit Independent with ADL's Yes Is patient alert and oriented? Yes Needs Assistance With Home Chores / Shopping Caregiver for Another No Community Services used prior to Physical Therapy admission: DME Already Rented / Owned FWW / Walker Patient/Family Preference Home with Home Health Barriers to Discharge No Discharge Plan Home with Home Health Community Services Physical Therapy,Occupational Therapy,Home Health Nurse Transportation Arrangement Pt's Dtr and spouse bedside to provide transport today on [address] to [place] Referrals Initiated Home Health If patient plan is home with home health Yes : Has signed face to face form been completed? Medicare Choice List Provided Yes SNF/HH Preference [facility] only agency that services [place] Whiteboard Updated in Patient Room with Yes name and ext. # of Rn Teacher Review Status In Process Please Provide Date Initial DC 03/20/22 Assessment Was Performed Next Review Type Continued Stay Review Pre-Anesthesia Assessment Start: 01/12/22 08:39 Freq: Status: Active Protocol: Document 03/11/22 09:53 CAB (Rec: 01/12/22 09:34 CAB [id number]) Pre-Anesthesia Assessment Patient Information Reviewed Via Phone Assessment Assessment Completed With Patient Diagnostic Results BMP/CMP,CBC,EKG,Urinalysis Comment Outside labs/ECG scanned, COVID screen @ [facility] 03/17/22 Primary Care Provider Lou Flores Seen Specialist in Last 12 Months Yes Specialist Seen Orthopedist Primary Language Latvian Director Index Required No Height 170.18 cm Weight 53.07 kg Body Mass Index (BMI) 18.3 Hearing Ability Normal Visual Impairment No Limitations Visual Assist None,Magnifying Glass Dentition Type Teeth, Natural Present Barriers to Learning None Hx Anesthesia Reactions No Hx Family Anesthesia Reaction No Hx Malignant Hyperthermia No Hx Blood Transfusions No Anesthesia Review Requested No alcohol intake current alcohol intake frequency a few times a week Smoking Status Never smoker Substance Use Type marijuana Comment Advised not to smoke marijuana 24 hours prior to surgery Pain Present Pain Reported Musculoskeletal Symptoms Abnormal Gait,Difficulty Walking,Joint Pain History of Falling (Recent or History of Yes ) Comment Within last 5 years r/t blood pressure medication Patient is completely paralyzed or No completely immobile Mental Status Oriented to own ability Is patient on oxygen? No Does patient have BATISTA/SOB No Hx Sleep Apnea No Currently Taking a Beta Myriam No Can You Climb a Flight of Stairs Without Yes SOB Hx Chest Pain No Hx SOB No Hx Syncope or Dizziness No Anti-Coagulant Therapy No Has a Schedule Supervisor No Cardiac Testing No Hx Pacemaker/ICD No Pacemaker Rep Required? 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 Received a COVID vaccine? Yes Received all doses? Yes Marital Status Lives With spouse Current Living Arrangements House Number of Floors (Floors) 3 or More Floors Support System Child/Children,Spouse Does the Patient Have Assistance After Yes: Daughter will also stay w Surgery /pt to assist with care at DC Patient Discharge Plan Description Return Home Comment Pt advised overnight length of stay per surgeon Additional comment Lives on [place] Feels Safe in Current Environment Yes Been Physically Hurt or Threatened By a No Person in Current Environment Are you currently considering suicide? No Do you have a plan to hurt yourself or No Plan others? Do You Have Any Spiritual Beliefs That No May Affect Your HC Choices? Do You Have Any Cultural Practices That No May Affect Your HC Choices? Spiritual Referral None Comment Restorationist Who Can We Speak to About Patient's Care Family, friends Identifying Code for Release of Patient Declines to issue Information Health Care Proxy/Next of Kin Vikash () Health Care Proxy Emergency Contact Name Steff (daughter) Emergency Contact Advance Directives? Yes Advance Directives on File No Requested Patient Bring Advanced Yes Directives DOS Power of Worm Farmer Yes Power of Worm Farmer Name Vikash () Power of Worm Farmer PAC Instructions Do not shave/clip surgical site,Durable medical equipment ,Medications to take/avoid, Nasal antibiotic,No ETOH/ petroleum product on skin DOS, NPO,Post-op transportation,Pre -surgical wash,Sensory aids, Sturdy shoes/comfortable clothes,Do not bring valuables and remove jewelry
--- NOTE | 2022-03-20 14:31 | PC.NURSE ---
Pt is A&OX3, VSS,afebrile on RA. She reports pain tolerable at 2-3/10 to R hip. She is evaluated by PA this a.m. and cleared from surgical standpoint for discharge home pending PT. She is cleared by PT this a.m. She expresses anxiety about nausea after post up and during the night emesis. Her IV had been accidentally removed by patient and she declined having it replaced. This RN administered po zofran prior to breakfast she tolerates 100% of breakfast without n/v. PA sent prescription for zofran ODT po to her pharmacy per request. She verbalizes understanding of activity, medications, site care, precautions, s/sx of complication as well as her follow up appointment.She is escorted via w/ch to private vehicle with her and daughter for discharge home to [place] this afternoon at approximately 1415 with all of her belongings including a pink FWW.
== END 2022-03-20 14:15 | disposition home or self-care (01) ==
LOC: OR 06:36 → AC 06:38
PROVIDERS: PCP Family Medicine; Referring Provider Nurse Practitioner Family; Visit Provider Orthopaedic Surgery
PROC: (CPT 27130; principal; 2022-03-19 07:45)
DX: M16.11 Unilateral primary osteoarthritis, right hip (principal)
CPT/HCPCS: 27130; 36415; 73502; 76000; 85014; 85018; 97116; 97162; 97530; C1776; C9290; J0690; J1170; J1885; J2405; J2704

== ENCOUNTER → 2023-03-01 10:10 | Outpatient (CLI) | payer MEDICARE, SELFPAY ==
[2022-03-19 12:31] VITALS: BMI 18.3
--- NOTE | 2023-03-01 | DI.MG.S_ITS ---
BILATERAL DIGITAL SCREENING MAMMOGRAM 3D/2D WITH CAD: 03/01/2023 CLINICAL: Routine screening. Comparison is made to exams dated: 02/26/2022 mammogram, 03/13/2020 mammogram, and 11/23/2018 mammogram - [facility]. There are scattered areas of fibroglandular density in both breasts (category b / 25%-50% glandular tissue). Current study was also evaluated with a Computer Aided Detection (CAD) system. There are benign vascular calcifications in both breasts. No significant masses, calcifications, or other findings are seen in either breast. There has been no significant interval change. IMPRESSION: BENIGN There is no mammographic evidence of malignancy. A 1 year screening mammogram is recommended. Based on the Tyrer Cuzick model (a risk assessment model) the patient's lifetime risk is 3.2% and her 10 year risk is 0.0%. According to the ACR, ACS, and NCCN guidelines, an annual breast MRI exam along with mammogram is recommended if the patient's lifetime risk is 20% or greater. This exam was interpreted at Station ID: [id number]. NOTE: For mammograms, a report in lay terms will be sent to the patient. Approximately 15% of breast malignancies will not be visualized mammographically. In the management of a palpable breast mass, a negative mammogram must not discourage biopsy of a clinically suspicious lesion. Electronically Signed By: Snow rodriguez/dina:03/01/2023 14:18:58 letter sent: Normal Exam ACR BI-RADS Category 2: Benign Finding(s) [id number]
== END ==
PROVIDERS: PCP Family Medicine; Referring Provider Family Medicine; Visit Provider Family Medicine
DX: Z12.31 Encounter for screening mammogram for malignant neoplasm of breast (principal)
CPT/HCPCS: 77063; 77067

== ENCOUNTER → 2024-04-10 13:25 | Outpatient (CLI) | payer MEDICARE, SELFPAY ==
[2022-03-19 12:31] VITALS: BMI 18.3
--- NOTE | 2024-04-10 13:28 | DI.MG.S_ITS ---
BILATERAL DIGITAL SCREENING MAMMOGRAM 3D/2D WITH CAD: 04/10/2024 CLINICAL: Routine screening. Comparison is made to exams dated: 03/01/2023 mammogram, 02/26/2022 mammogram, and 03/13/2020 mammogram - [facility]. There are scattered areas of fibroglandular density (category b / 25%-50% glandular tissue). Current study was also evaluated with a Computer Aided Detection (CAD) system. There are benign vascular calcifications in both breasts. No significant masses, calcifications, or other findings are seen in either breast. There has been no significant interval change. IMPRESSION: BENIGN There is no mammographic evidence of malignancy. A 1 year screening mammogram is recommended. Based on the Tyrer Cuzick model (a risk assessment model) the patient's lifetime risk is 2.8% and her 10 year risk is 0.0%. According to the ACR, ACS, and NCCN guidelines, an annual breast MRI exam along with mammogram is recommended if the patient's lifetime risk is 20% or greater. This exam was interpreted at Station ID: [id number]. NOTE: For mammograms, a report in lay terms will be sent to the patient. Approximately 15% of breast malignancies will not be visualized mammographically. In the management of a palpable breast mass, a negative mammogram must not discourage biopsy of a clinically suspicious lesion. Electronically Signed By: Bk grullon/dina:04/10/2024 16:16:18 letter sent: Normal Exam ACR BI-RADS Category 2: Benign
== END ==
PROVIDERS: PCP Family Medicine; Referring Provider Family Medicine; Visit Provider Family Medicine
DX: Z12.31 Encounter for screening mammogram for malignant neoplasm of breast (principal)
CPT/HCPCS: 77063; 77067